=== PATIENT | female | born 1980 | race Caucasian/White ===

== ENCOUNTER → 2016-06-14 | Outpatient (CLI) | payer OTHER ==
[~2016-06-14] MED LIST: ADAL1KIT SC; ATEN-173 PO; CEPH-571 PO; CHOL1000 PO; HYDR2.5O TOP; LEVOIUD IU; NATURAL SUPPLEMENT PO
[2016-06-14 13:24] LABS: BASO % 1.1 %; BASO ABS # 0.08 K/uL (0-0.2); COMPLETE YES; EOS % 9.1 %; IG% 0.1 %; LYMPH ABS # 2.97 K/uL (1.2-3.4); MEAN CELL VOLUME 94.8 fL (80-100); MEAN CORPUSCULAR HEMOGLOBIN 31.9 pg (25-34); MEAN CORPUSCULAR HGB CONC 33.7 g/dl (32-36); MEAN PLATELET VOLUME 9.5 fL (7.4-10.4); MONO % 5.2 %; NEUT % 43.5 %; PLATELET COUNT 355 K/uL (130-400); RED BLOOD COUNT 4.01 M/uL (4.2-5.4); WHITE BLOOD COUNT 7.24 K/uL (4.8-10.8)
[2016-06-14 14:14] LABS: ALKALINE PHOSPHATASE 84 U/L (45-117); ALT/SGPT 21 U/L (12-78); AST/SGOT 16 U/L (15-37); BLOOD UREA NITROGEN 6 mg/dl (7-18); BUN/CREATININE RATIO 9.1 (10-20); CARBON DIOXIDE 29 mmol/L (21-32); CHLORIDE 107 mmol/L (98-107); CREATININE 0.64 mg/dl (0.60-1.20); GLUCOSE 83 mg/dl (70-99); POTASSIUM 3.6 mmol/L (3.5-5.1); SODIUM 141 mmol/L (136-145)
[2016-06-14 14:27] LABS: ALB/GLOB RATIO 0.9 (0.9-2); C-REACTIVE PROTEIN 0.87 mg/dl (0-0.29)
[2016-06-16 16:54] LABS: QUANTIF TB AG-NIL 0.14 IU/ML; QUANTIFERON NIL 0.09 IU/ML
== END | disposition home or self-care (01) ==
LOC: C.LAB1850 12:37
PROVIDERS: ATTEND Registered Nurse
DX: R19.8 Other specified symptoms and signs involving the digestive system and abdomen (principal); E55.9 Vitamin D deficiency, unspecified

== ENCOUNTER → 2016-06-19 | Outpatient (CLI) | payer OTHER ==
[~2016-06-19] MED LIST changes: +GADAVIST IV PRN
--- NOTE | 2016-06-19 07:53 | DIAGNOSTIC IMAGING REPORT ---
MRI pelvis PELVIS COMBO CLINICAL HISTORY: K51.90 Ulcerative [id number] OlytkfrH45.8 Rectal ondgtancP25.8 pain. Fistula. TECHNIQUE: Multi axial MRI acquisition COMPARISON STUDY: None FINDINGS: Findings suggesting a slight degree of wall edema and hyperemia of the mid to distal sigmoid and rectosigmoid regions. There is a trace amount of pericolonic infiltrative change. A well-defined fistulous tract abscess or collection is not appreciated. Bladder is midline. Uterus is retroflexed in configuration. The junctional zone is intact. No significant pelvic or inguinal adenopathy. IMPRESSION: Findings consistent with a mild component of rectosigmoid colitis. 2. Mild pericolonic infiltrative change. 3. No evidence for abscess collection or obstructive change. 4. No evidence for well-defined fistulous tract. Electronically signed by: Ino Pritchett M.D. 06/19/2016 7:52 AM Dictated Date/Time: 06/19/2016 7:46 AM
== END | disposition home or self-care (01) ==
LOC: C.MRI 05:52
PROVIDERS: ATTEND Registered Nurse
DX: K51.90 Ulcerative colitis, unspecified, without complications (principal); K62.5 Hemorrhage of anus and rectum; L98.8 Other specified disorders of the skin and subcutaneous tissue; R19.8 Other specified symptoms and signs involving the digestive system and abdomen

== ENCOUNTER → 2016-07-24 | Day surgery (SDC) | payer OTHER ==
[2016-07-18 13:20] VITALS: BMI 21.0
[~2016-07-24] VITALS: Ht 160 cm; Wt 55.9 kg
[~2016-07-24] MED LIST changes: +ATROPINE SULFATE 0.1 MG/ML 5ML SYR IV PRN; +EpHEDrine SULFATE INJ 50 MG/ML AMP IV PRN; -GADAVIST IV PRN; -LEVOIUD IU; +MIDAZOLAM HCL 1 MG/ML 2ML VIAL ONE; -NATURAL SUPPLEMENT PO; +PROPOFOL IV EMULSION 10 MG/ML 20 ML VIAL IV ONE; +SODIUM CHLORIDE 0.9% 500ML 500 ML IV ONE
[2016-07-24 14:40] VITALS: Ht 160 cm; Wt 55.9 kg
--- NOTE | 2016-07-24 15:05 | Endo History and Physical ---
History & Physical Date of Service: Jul 24, 2016. Chief Complaint: HX ULCERATIVE COLISTIS, FLARE STARTING APRIL BLOOD AND MUCOUS Referring Physician: DR BONILLA History of Present Illness 35 yo CF who presents for colonoscopy secondary to history of ulcerative colitis. Past Surgical History Hx Cardiac Surgery: No Hx Internal Defibrillator: No Hx Pacemaker: No Hx Abdominal Surgery: Yes (C SECTION) Hx of Implantable Prosthesis: No Hx Post-Op Nausea and Vomiting: No Hx Cancer Surgery: No Hx Thoracic Surgery: No Hx Orthopedic: No Hx Urinary Tract Surgery: No Family History IBD Social History Smoking Status: Never Smoker Hx Substance Use: No Hx Alcohol Use: Yes (VERY RARELY) Allergies Coded Allergies: No Known Allergies (Unverified , 07/24/16) Current Medications Reported Home Medications Medications Dose Route/Sig Max Daily Dose Days Date Category Dose Instructions Hydrocortisone (Hydrocortisone (Topical)) 2.5 % Oin 1 Appln TOP PRN 5 07/18/16 Reported Vitamin D3 (Cholecalciferol) 1,000 Unit Tab 5,000 Units PO Q3D 90 07/18/16 Reported Tenormin (Atenolol) 25 Mg Tab 25 Mg PO QAM 07/18/16 Reported Humira (Adalimumab) 40 Mg/0.8 Ml Kit 40 Mg SC Q2WEEK 09/24/13 Reported LAST DOSE-07/12/16 Vital Signs Weight (Kilograms): 55.91 Height (Feet): 5 Height (Inches): 3 Date Time Temp Pulse Resp B/P (MAP) Pulse Ox O2 Delivery O2 Flow Rate FiO2 07/24/16 14:40 36.7 80 20 141/67 (91) 100 Room Air Physical Exam General Appearance: WD/WN, no apparent distress Respiratory/Chest: Auscultation: breath sounds normal Cardiovascular: Heart Auscultation: RRR Abdomen: Bowel Sounds: normal Inspection & Palpation: soft, non-distended, no tenderness, guarding & rebound Assessment and Plan Assessment: 35 yo CF who presents for colonoscopy secondary to history of ulcerative colitis. Plan: Proceed with colonoscopy.
--- NOTE | 2016-07-24 15:45 | Discharge Instructions ---
Endoscopy Patient Instructions Date / Procedure(s) Performed Jul 24, 2016. Colonoscopy Allergy Information Coded Allergies: No Known Allergies (Unverified , 07/24/16) Discharge Date / Findings Jul 24, 2016. Left sided UC s/p biopsies Random colon biopsies Stool aspirate collected Medication Instructions OK to resume all medications today as prescribed Reported Home Medications Medications Dose Route/Sig Max Daily Dose Days Date Category Dose Instructions Hydrocortisone (Hydrocortisone (Topical)) 2.5 % Oin 1 Appln TOP PRN 5 07/18/16 Reported Vitamin D3 (Cholecalciferol) 1,000 Unit Tab 5,000 Units PO Q3D 90 07/18/16 Reported Tenormin (Atenolol) 25 Mg Tab 25 Mg PO QAM 07/18/16 Reported Humira (Adalimumab) 40 Mg/0.8 Ml Kit 40 Mg SC Q2WEEK 09/24/13 Reported LAST DOSE-07/12/16 Provider Instructions Activity Restrictions - No exercising or heavy lifting for 24 hours. - Do not drink alcohol the day of the procedure. - Do not drive a car or operate machinery until the day after the procedure. - Do not make any important decisions or sign important papers in 24 hours after the procedure. Following Day: - Return to full activity which may include returning to work/school. Diet Start your diet with liquids and light foods (jello, soup, juice, toast). Then eat your usual diet if not nauseated. Treatment For Common After Affects For mild abdominal pain, bloating, or excessive gas: - Rest - Eat lightly - Lie on right side Follow-Up Information Follow-up with DR BONILLA as scheduled Anesthesia Information What You Should Know You have had a procedure that required some medicine to reduce anxiety and discomfort. This treatment is called moderate sedation. After receiving the treatment, you may be sleepy, but you will be able to breathe on your own. The effects of the treatment may last for several hours. Follow these instructions along with Activity/Diet recommendations noted above: * Do NOT do anything where dizziness or clumsiness would be dangerous. * Rest quietly at home today, then you can be up and about tomorrow. * Have a responsible person stay with you the rest of today. * You may have had an I.V. today. If so, you may take the dressing off later today. Recommendations Call your doctor if: * Trouble breathing * Continuous vomiting for more than 24 hours * Temperature above 101 degrees * Severe abdominal pain or bloating * Pain not relieved by pain medicine ordered * There is increased drainage or redness from any incision * A large amount of rectal bleeding greater than 2-3 tablespoons. (If you had a polyp/s removed or have hemorrhoids, a small amount of blood - from the rectum is to be expected.) * You have any unanswered questions or concerns. IN THE EVENT OF A SERIOUS EMERGENCY, GO TO THE NEAREST EMERGENCY ROOM Your discharge instructions were prepared by provider Arash Ward. Patient Instructions Signature Page Veronique Dubois Patient (or Guardian) Signature/Date: I have read and understand the instructions given to me by my caregivers. Caregiver/RN/Doctor Signature/Date: The above-named patient and/or guardian has received patient instructions on this date. + Original Patient Signature Page (only) stays with chart. Please make copy for patient.
--- NOTE | 2016-07-24 15:56 | Anesthesiology Progress Note ---
Anesthesia Post Op Note Date & Time Jul 24, 2016 at 15:55 Vital Signs Pain Intensity: 0 Vital Signs Past 12 Hours Date Time Temp Pulse Resp B/P (MAP) Pulse Ox O2 Delivery O2 Flow Rate FiO2 07/24/16 14:40 36.7 80 20 141/67 (91) 100 Room Air Notes Mental Status: alert / awake / arousable, participated in evaluation Pt Amnestic to Procedure: Yes Nausea / Vomiting: adequately controlled Pain: adequately controlled Airway Patency, RR, SpO2: stable & adequate BP & HR: stable & adequate Hydration State: stable & adequate Anesthetic Complications: no major complications apparent
--- NOTE | 2016-07-24 16:01 | GI REPORT ---
Procedure Date: 07/24/2016 3:11 PM Procedure: Colonoscopy Indications: Left-sided chronic ulcerative colitis Medicines: Monitored Anesthesia Care Complications: No immediate complications. Estimated Blood Loss: Estimated blood loss: none. Procedure: Pre-Anesthesia Assessment: - Prior to the procedure, a History and Physical was performed, and patient medications and allergies were reviewed. The patient's tolerance of previous anesthesia was also reviewed. The risks and benefits of the procedure and the sedation options and risks were discussed with the patient. All questions were answered, and informed consent was obtained. Prior Anticoagulants: The patient has taken no previous anticoagulant or antiplatelet agents. ASA Grade Assessment: II - A patient with mild systemic disease. After reviewing the risks and benefits, the patient was deemed in satisfactory condition to undergo the procedure. After I obtained informed consent, the scope was passed under direct vision. Throughout the procedure, the patient's blood pressure, pulse, and oxygen saturations were monitored continuously. The scope was introduced through the anus and advanced to the terminal ileum. The colonoscopy was performed without difficulty. The patient tolerated the procedure well. The quality of the bowel preparation was good. The terminal ileum, ileocecal valve, appendiceal orifice, and rectum were photographed. Findings: Inflammation characterized by confluent ulcerations was found in a continuous and circumferential pattern from the anus to the sigmoid colon. The descending colon, the transverse colon, the ascending colon and the cecum were spared. This was severe in severity. Biopsies were taken with a cold forceps for histology. Fluid aspiration for cytology was performed in the entire colon. Impression: - Inflammation was found from the anus to the sigmoid colon secondary to left-sided ulcerative colitis. Biopsied. - Fluid aspiration was performed. Recommendation: - Resume previous diet. - Continue present medications. - Repeat colonoscopy for surveillance based on pathology results. - Return to primary care physician as previously scheduled. Arash Ward DO 07/24/2016 4:01:28 PM This report has been signed electronically. Note Initiated On: 07/24/2016 3:11 PM I attest to the content of the Intraoperative Record and orders documented therein, exceptions below
[2016-07-24 16:15] VITALS: BP 103/68; PULSE 79; O2SAT 100
== END | disposition home or self-care (01) ==
LOC: C.GI 14:28
PROVIDERS: ATTEND Internal Medicine
DX: K51.90 Ulcerative colitis, unspecified, without complications (principal); I10 Essential (primary) hypertension; Z68.21 Body mass index [BMI] 21.0-21.9, adult

== ENCOUNTER → 2016-11-27 | Outpatient (CLI) | payer OTHER ==
[~2016-11-27] MED LIST changes: -ATROPINE SULFATE 0.1 MG/ML 5ML SYR IV PRN; -CEPH-571 PO; -EpHEDrine SULFATE INJ 50 MG/ML AMP IV PRN; -MIDAZOLAM HCL 1 MG/ML 2ML VIAL ONE; -PROPOFOL IV EMULSION 10 MG/ML 20 ML VIAL IV ONE; -SODIUM CHLORIDE 0.9% 500ML 500 ML IV ONE
== END | disposition home or self-care (01) ==
LOC: C.MAMM 07:55
PROVIDERS: ATTEND Registered Nurse
DX: K51.90 Ulcerative colitis, unspecified, without complications (principal); E55.9 Vitamin D deficiency, unspecified

== ENCOUNTER 2017-01-02 09:27 | Emergency (ER) | payer OTHER ==
[~2017-01-02] VITALS: Ht 160 cm; Wt 53.3 kg
[2017-01-02 09:30] VITALS: TEMP 36.7; Ht 160 cm; Wt 53.3 kg
[2017-01-02] MEDS ORDERED: SODIUM CHLORIDE 0.9% 500ML 500 ML IV STA (10:01)
[2017-01-02 10:16] LABS: BASO % 0.6 %; BASO ABS # 0.06 K/uL (0-0.2); COMPLETE YES; EOS % 1.9 %; HEMATOCRIT 38.7 % (37-47); IG% 0.3 %; LYMPH % 14.8 %; MEAN CELL VOLUME 92.1 fL (80-100); MEAN CORPUSCULAR HEMOGLOBIN 31.2 pg (25-34); MEAN CORPUSCULAR HGB CONC 33.9 g/dl (32-36); MEAN PLATELET VOLUME 9.5 fL (7.4-10.4); MONO % 3.8 %; NEUT % 78.6 %; PLATELET COUNT 286 K/uL (130-400); WHITE BLOOD COUNT 10.14 K/uL (4.8-10.8)
[2017-01-02 10:28] LABS: URINE APPEARANCE CLEAR (CLEAR); URINE BILIRUBIN NEG (NEG); URINE COLOR YELLOW; URINE EPITHELIAL CELL AUTO 20-30 /lpf (0-5); URINE NITRITE NEG (NEG); URINE SPECIFIC GRAVITY 1.009 (1.000-1.030); UROBILINOGEN NEG (NEG); ZZUR CULT IF INDIC CLEAN CATCH YES
[2017-01-02 10:33] LABS: MANUAL MICROSCOPIC REQUIRED? NO; REVIEW REQ? NO
[2017-01-02 10:34] LABS: ALT/SGPT 14 U/L (12-78); BLOOD UREA NITROGEN 7 mg/dl (7-18); BUN/CREATININE RATIO 9.6 (10-20); CALCIUM 9.2 mg/dl (8.5-10.1); CARBON DIOXIDE 25 mmol/L (21-32); CHLORIDE 102 mmol/L (98-107); CREATININE 0.71 mg/dl (0.60-1.20); GLUCOSE 106 mg/dl (70-99); POTASSIUM 3.3 mmol/L (3.5-5.1); SODIUM 136 mmol/L (136-145)
[2017-01-02 10:37] LABS: ALKALINE PHOSPHATASE 94 U/L (45-117); AST/SGOT 10 U/L (15-37)
[2017-01-02] MEDS ORDERED: OPTIRAY 320 IV PRN (11:00)
[2017-01-02 12:28] VITALS: BP 139/80; PULSE 99; O2SAT 100
--- NOTE | 2017-01-02 13:05 | DIAGNOSTIC IMAGING REPORT ---
CT SCAN OF THE ABDOMEN AND PELVIS WITH IV CONTRAST CLINICAL HISTORY: Urethral fistula. COMPARISON STUDY: Pelvic MRI dated 06/19/2016. TECHNIQUE: Following the IV administration of 94 cc of Optiray 320, CT scan of the abdomen and pelvis is performed from the lung bases to the proximal femora. Images are reviewed in the axial, sagittal, and coronal planes. IV contrast was administered without complication. A dose lowering technique was utilized adhering to the principles of ALARA. CT DOSE: 243.48 mGy.cm FINDINGS: Lung bases: The heart is normal in size and without pericardial effusion. The lung bases are clear. Liver: The contrast-enhanced liver is normal in size, contour, and attenuation. Fatty infiltration is seen adjacent to falciform ligament. There is no intrahepatic biliary ductal dilatation. The hepatic veins and portal veins are patent. Gallbladder: Unremarkable. Spleen: Normal in size and attenuation. Pancreas: Unremarkable. Adrenal glands: Unremarkable. Kidneys: The contrast enhanced kidneys are normal in size and without hydronephrosis. The kidneys enhance symmetrically. Abdominal vasculature: The abdominal aorta is normal in course and caliber noting moderate to advanced atherosclerotic calcification significantly advanced for age. Bowel: There is wall thickening involving the rectosigmoid colon with surrounding inflammatory change. The appearance is consistent with a nonspecific proctocolitis. No bowel obstruction is seen. The appendix is well-visualized and normal. The perianal soft tissues are normal in appearance. No perianal abscess or fistula is identified by CT. Peritoneum: There is no intraperitoneal free air or abdominal ascites. There is a fat-containing umbilical hernia. Lymphadenopathy: A prominent left inguinal lymph node measures 1.7 x 1.2 cm. Pelvic viscera: The bladder, uterus, and adnexa are normal as visualized. Bilateral ovarian follicles are observed. Skeletal structures: No lytic or blastic lesions are seen. IMPRESSION: 1. Findings are consistent with a nonspecific proctocolitis. This is likely on an infectious or inflammatory basis. Clinical correlation will be essential. 2. There is no CT evidence of urethral fistula as clinically queried. Note that this is not well evaluated by CT. 3. Prominent left inguinal lymph nodes are identified and likely on the reactive basis. Clinical correlation will be required. 4. The perianal soft tissues are normal as visualized. 5. There is age advanced atherosclerotic calcification of the abdominal aorta and iliac arteries. 6. Additional findings as above. Electronically signed by: Jorge Whitfield M.D. 01/02/2017 1:03 PM Dictated Date/Time: 01/02/2017 12:56 PM
[2017-01-02] MEDS ORDERED: CEPH-571 PO (13:29)
[2017-01-02] MEDS ORDERED: CEPHALEXIN MONOHYDRATE 250 MG CAP PO ONE (13:30)
--- NOTE | 2017-01-02 15:19 | EMERGENCY ROOM VISIT NOTE ---
History Report prepared by Lexi: Carolina Rider Under the Supervision of: Dr. Jameson Norris D.O. 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 She reports feeling the need to have a bowel movement this morning. She felt some abdominal pressure and then a "pop." She was incontinent of stool and noticed some flecks of bright red blood throughout and on her underwear. She then went to have a bowel movement and reports some bright red blood in the toilet bowl. She is not sure if the blood is in her stool or if she is bleeding vaginally or from her urethra. The patient states that she has had multiple episodes of diarrhea this morning and has had "a lot of blood dripping out." She reports bright red blood and denies any melena. She is still experiencing abdominal pain that she describes as a pressure and rates as a 3/10 in severity. 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 Crohn's disease and was diagnosed when she was 16 years old. She was taking Humira for years but reports that she stopped taking it 9-10 weeks ago. She states that she is currently having a flare-up of her UC vs. Crohn's and her current symptoms are typical are her usual flare- ups. The patient does not take any blood thinners. She denies fevers, nausea, vomiting, and dysuria. She follows with Dr. Prater GI. 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 Review of Systems See HPI for pertinent positives & negatives. A total of 10 systems reviewed and were otherwise negative. . Past Medical & Surgical Medical Problems: (1) Anxiety (2) Hypertension (3) Inflammatory bowel disease (4) Ulcerative colitis vs. Crohns disease (5) Urinary tract infection (6) Urinary tract infection Family History No pertinent history stated. Social History Smoking Status: Never Smoker Smokeless Tobacco Use: No Marital Status: single Occupation Status: employed Current/Historical Medications Scheduled Cephalexin (Keflex), 1 CAP PO TID Allergies Coded Allergies: Thimerosal (Unverified Allergy, Unknown, UNKNOWN (FROM ALLERGY TESTING), 01/02/17) Physical Exam Vital Signs Date Time Temp Pulse Resp B/P (MAP) Pulse Ox O2 Delivery O2 Flow Rate FiO2 01/02/17 12:28 99 18 139/80 100 Room Air 01/02/17 10:55 99 18 132/88 100 Room Air 01/02/17 09:30 36.7 103 18 143/91 99 Room Air Physical Exam GENERAL: Sitting up in bed, alert, well appearing, well nourished, no distress, non-toxic EYE EXAM: normal conjunctiva. OROPHARYNX: no exudate, no erythema, lips, buccal mucosa, and tongue normal and mucous membranes are moist NECK: supple, no nuchal rigidity, no adenopathy, non-tender LUNGS: Clear to auscultation. Normal chest wall mechanics HEART: no murmurs, S1 normal and S2 normal ABDOMEN: abdomen soft, non-tender, normo-active bowel sounds, no masses, no rebound or guarding. PELVIC: Normal external genitalia. Normal vaginal mucosa. Faint amount of venous oozing from cervix. Patient is due for menstrual period any day. BACK: Back is symmetrical on inspection and there is no deformity, no midline tenderness, no CVA tenderness. SKIN: no rashes and no bruising UPPER EXTREMITIES: upper extremities are grossly normal. LOWER EXTREMITIES: No pitting edema. NEURO EXAM: Normal sensorium, cranial nerves II-XII grossly intact, normal speech, no gross weakness of arms, no gross weakness of legs. Medical Decision & Procedures ER Provider Diagnostic Interpretation: Radiology results as stated below per my review and the radiologist's interpretation: CT SCAN OF THE ABDOMEN AND PELVIS WITH IV CONTRAST CLINICAL HISTORY: Urethral fistula. COMPARISON STUDY: Pelvic MRI dated 06/19/2016. TECHNIQUE: Following the IV administration of 94 cc of Optiray 320, CT scan of the abdomen and pelvis is performed from the lung bases to the proximal femora. Images are reviewed in the axial, sagittal, and coronal planes. IV contrast was administered without complication. A dose lowering technique was utilized adhering to the principles of ALARA. CT DOSE: 243.48 mGy.cm FINDINGS: Lung bases: The heart is normal in size and without pericardial effusion. The lung bases are clear. Liver: The contrast-enhanced liver is normal in size, contour, and attenuation. Fatty infiltration is seen adjacent to falciform ligament. There is no intrahepatic biliary ductal dilatation. The hepatic veins and portal veins are patent. Gallbladder: Unremarkable. Spleen: Normal in size and attenuation. Pancreas: Unremarkable. Adrenal glands: Unremarkable. Kidneys: The contrast enhanced kidneys are normal in size and without hydronephrosis. The kidneys enhance symmetrically. Abdominal vasculature: The abdominal aorta is normal in course and caliber noting moderate to advanced atherosclerotic calcification significantly advanced for age. Bowel: There is wall thickening involving the rectosigmoid colon with surrounding inflammatory change. The appearance is consistent with a nonspecific proctocolitis. No bowel obstruction is seen. The appendix is well-visualized and normal. The perianal soft tissues are normal in appearance. No perianal abscess or fistula is identified by CT. Peritoneum: There is no intraperitoneal free air or abdominal ascites. There is a fat-containing umbilical hernia. Lymphadenopathy: A prominent left inguinal lymph node measures 1.7 x 1.2 cm. Pelvic viscera: The bladder, uterus, and adnexa are normal as visualized. Bilateral ovarian follicles are observed. Skeletal structures: No lytic or blastic lesions are seen. IMPRESSION: 1. Findings are consistent with a nonspecific proctocolitis. This is likely on an infectious or inflammatory basis. Clinical correlation will be essential. 2. There is no CT evidence of urethral fistula as clinically queried. Note that this is not well evaluated by CT. 3. Prominent left inguinal lymph nodes are identified and likely on the reactive basis. Clinical correlation will be required. 4. The perianal soft tissues are normal as visualized. 5. There is age advanced atherosclerotic calcification of the abdominal aorta and iliac arteries. 6. Additional findings as above. Electronically signed by: Jorge Whitfield M.D. 01/02/2017 1:03 PM Dictated Date/Time: 01/02/2017 12:56 PM Laboratory Results 01/02/17 10:00 Red Blood Count 4.20, Mean Corpuscular Volume 92.1, Mean Corpuscular Hemoglobin 31.2, Mean Corpuscular Hemoglobin Concent 33.9, Mean Platelet Volume 9.5, Neutrophils (%) (Auto) 78.6, Lymphocytes (%) (Auto) 14.8, Monocytes (%) (Auto) 3.8, Eosinophils (%) (Auto) 1.9, Basophils (%) (Auto) 0.6, Neutrophils # (Auto) 7.97, Lymphocytes # (Auto) 1.50, Monocytes # (Auto) 0.39, Eosinophils # (Auto) 0.19, Basophils # (Auto) 0.06 01/02/17 10:00 Test 01/02/17 10:00 01/02/17 10:03 White Blood Count 10.14 K/uL (4.8-10.8) Red Blood Count 4.20 M/uL (4.2-5.4) Hemoglobin 13.1 g/dL (12.0-16.0) Hematocrit 38.7 % (37-47) Mean Corpuscular Volume 92.1 fL (80-100) Mean Corpuscular Hemoglobin 31.2 pg (25-34) Mean Corpuscular Hemoglobin Concent 33.9 g/dl (32-36) Platelet Count 286 K/uL (130-400) Mean Platelet Volume 9.5 fL (7.4-10.4) Neutrophils (%) (Auto) 78.6 % Lymphocytes (%) (Auto) 14.8 % Monocytes (%) (Auto) 3.8 % Eosinophils (%) (Auto) 1.9 % Basophils (%) (Auto) 0.6 % Neutrophils # (Auto) 7.97 K/uL (1.4-6.5) Lymphocytes # (Auto) 1.50 K/uL (1.2-3.4) Monocytes # (Auto) 0.39 K/uL (0.11-0.59) Eosinophils # (Auto) 0.19 K/uL (0-0.5) Basophils # (Auto) 0.06 K/uL (0-0.2) RDW Standard Deviation 43.2 fL (36.4-46.3) RDW Coefficient of Variation 12.8 % (11.5-14.5) Immature Granulocyte % (Auto) 0.3 % Immature Granulocyte # (Auto) 0.03 K/uL (0.00-0.02) Anion Gap 9.0 mmol/L (3-11) Est Creatinine Clear Calc Drug Dose 88.8 ml/min Estimated GFR () 125.2 Estimated GFR (Non- 108.1 BUN/Creatinine Ratio 9.6 (10-20) Calcium Level 9.2 mg/dl (8.5-10.1) Total Bilirubin 0.3 mg/dl (0.2-1) Direct Bilirubin < 0.1 mg/dl (0-0.2) Aspartate Amino Transf (AST/SGOT) 10 U/L (15-37) Alanine Aminotransferase (ALT/SGPT) 14 U/L (12-78) Alkaline Phosphatase 94 U/L (45-117) Total Protein 8.5 gm/dl (6.4-8.2) Albumin 3.4 gm/dl (3.4-5.0) Lipase 94 U/L (73-393) Urine Color YELLOW Urine Appearance CLEAR (CLEAR) Urine pH 6.0 (4.5-7.5) Urine Specific [place] 1.009 (1.000-1.030) Urine Protein NEG (NEG) Urine Glucose (UA) NEG (NEG) Urine Ketones 1+ (NEG) Urine Occult Blood 2+ (NEG) Urine Nitrite NEG (NEG) Urine Bilirubin NEG (NEG) Urine Urobilinogen NEG (NEG) Urine Leukocyte Esterase MODERATE (NEG) Urine WBC (Auto) 10-30 /hpf (0-5) Urine RBC (Auto) 5-10 /hpf (0-4) Urine Hyaline Casts (Auto) 0 /lpf (0-5) Urine Epithelial Cells (Auto) 20-30 /lpf (0-5) Urine Bacteria (Auto) NEG (NEG) Urine Test NEG (NEG) Laboratory results per my review. Medications Administered Medications (Trade) Dose Ordered Sig/Oscar Route Start Time Stop Time Status Last Admin Dose Admin Sodium Chloride 500 ml @ 999 mls/hr Q31M STAT IV 01/02/17 10:01 01/02/17 10:31 DC 01/02/17 10:29 999 MLS/HR Cephalexin Monohydrate (Keflex Cap) 500 mg NOW ONCE PO 01/02/17 13:30 01/02/17 13:31 DC 01/02/17 13:56 500 MG ED Course ED COURSE: Vital signs were reviewed and showed tachycardic. The patients medical record was reviewed The above diagnostic studies were performed and reviewed. ED treatments and interventions as stated above. 0944: The patient was evaluated in room B6. A complete history and physical examination was performed. 1001: Ordered NSS 500 ml @ 999 mls/hr IV 1004: I performed a rectal exam. The patient has an external hemorrhoid and is faint heme positive. 1214 I reassessed the patient at this time. She is feeling better and resting comfortably. 1302: The patient is doing well at this time. 1320: I reassessed the patient and updated her on the results. 1321: I spoke with Dr. Tinsley regarding the patient's case. He recommends no additional medications at this time and will follow-up with the patient in the office. 1326: Upon reevaluation the patient is resting comfortably. I discussed my findings with the patient and she understands and agrees with the treatment plan. Based on the patients age, coexisting illnesses, exam and lab findings the decision to treat as an outpatient was made. The patient remained stable while under my care. The patient appeared well at the time of discharge. 1330: Ordered Keflex 500 mg PO Medical Decision Differential diagnoses includes but is not limited to gastritis, peptic ulcer disease, GERD, gallbladder disease, pancreatitis, small bowel obstruction, acute coronary syndrome, pericarditis, ischemic bowel, irritable bowel disease, irritable bowel syndrome, appendicitis, diverticulitis, malignancy, hernia, urinary tract infection, torsion, [/ectopic (if female)], perforation, trauma, infectious. Patient is a 36-year-old female who presents to ER for diffuse lower abdominal pain associated with blood in her stool. History of Crohn's/ulcerative colitis and follows with GI. Has not been on any medication for the past 10 weeks secondary to side effects. Concerned that she may possibly have a fistula as she noticed stool products near her urethra/vagina. CT abdomen and pelvis was unchanged. CBC along with BMP, LFTs, bilirubin lipase is unremarkable. was negative. UA shows UTI. Discussed with GI. They do not want to start any additional medications will see her in the office this week. 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 She was discharged follow- up as an outpatient. Discussed with Pt concerning signs and symptoms to watch out for. Pt was instructed to follow up with their PCP and discussed with the patient their option to return to the ED at anytime for persistent or worsening symptoms. The appropriate anticipatory guidance and out-patient management, including indications for return to the emergency department, were explained at length to the patient and understood. Medication Reconcilliation Current Medication List: was personally reviewed by me Blood Pressure Screening Patient's blood pressure: Normal blood pressure Consults Time Called: 1318 Consulting Physician: Dr. Mendez Returned Call: [address] Mendez of GI regarding the patient's case. He recommends no additional medications at this time and will follow-up with the patient in the office. Impression Primary Impression: Inflammatory bowel disease Additional Impression: UTI (urinary tract infection) Scribe Attestation The scribe's documentation has been prepared under my direction and personally reviewed by me in its entirety. I confirm that the note above accurately reflects all work, treatment, procedures, and medical decision making performed by me. Departure Information Dispostion Home / Self-Care Prescriptions Cephalexin (KEFLEX) 500 Mg Cap 1 CAP PO TID for 7 Days, #21 CAP Prov: Jameson Norris, DO 01/02/17 Referrals Markie Clemens M.D. (PCP) Arash Mendez D.O. Forms HOME CARE DOCUMENTATION FORM, IMPORTANT VISIT INFORMATION, WORK / SCHOOL INSTRUCTIONS Patient Instructions ED Inflam Bowel Disease Crohn, ED UTI Cystitis Female, My [facility] Additional Instructions Please follow up with your primary care doctor with in the next 24 hours. Any worsening of your symptoms, please return to the ED immediately. This includes any fevers greater than 100.4, worsening pain, chest pain, shortness breath, persistent nausea, vomiting, unable to eat or drink, increased blood in your stool, passing out, or any other concerning signs or symptoms from your standpoint. Please call Dr. mendez when you leave here to set up an appointment. Please take your antibiotics as prescribed. Problem Qualifiers Additional Impression: UTI (urinary tract infection) Urinary tract infection type: site unspecified Hematuria presence: with hematuria Qualified Codes: N39.0 - Urinary tract infection, site not specified ; R31.9 - Hematuria, unspecified
== END 2017-01-02 14:03 | disposition home or self-care (01) ==
LOC: C.EDB 09:28
DX: K63.9 Disease of intestine, unspecified (principal); N39.0 Urinary tract infection, site not specified; R31.9 Hematuria, unspecified; Z98.890 Other specified postprocedural states; I10 Essential (primary) hypertension; Z87.440 Personal history of urinary (tract) infections

== ENCOUNTER → 2017-01-11 | Outpatient (CLI) | payer OTHER ==
[~2017-01-11] MED LIST changes: -ADAL1KIT SC; -ATEN-173 PO; -CHOL1000 PO; +GADAVIST IV PRN; -HYDR2.5O TOP
--- NOTE | 2017-01-12 15:57 | DIAGNOSTIC IMAGING REPORT ---
MRI OF THE PELVIS WITH AND WITHOUT CONTRAST CLINICAL HISTORY: History of fistulas. Hematuria. COMPARISON STUDY: MRI of the pelvis June 19, [address] of the abdomen and pelvis January 02, 2017. TECHNIQUE: Utilizing a 1.5 Annamarie magnet and dedicated coil, multiplanar, multiecho imaging of the pelvis was performed pre and postcontrast administration. Injection of 5.5 cc of Gadavist IV was uneventful. FINDINGS: Note is made of mild wall thickening of the sigmoid colon and rectum which is similar to CT of January 02, 2017. No perirectal abscess or fistula is identified. There is mild pericolonic infiltration which is unchanged. There are prominent perirectal lymph nodes which are unchanged. No periurethral fistula is identified by MRI. There is no pelvic abscess. The ovaries are not enlarged. No suspicious marrow replacement is present. Prominent bilateral inguinal lymph nodes are unchanged since prior CT. IMPRESSION: 1. No perirectal or periurethral fistula identified. No pelvic abscess identified. 2. Mild wall thickening of the sigmoid colon and rectum which suggests a nonspecific proctocolitis which is similar to CT of January 02, 2017. Electronically signed by: Devin Armando M.D. 01/12/2017 3:56 PM Dictated Date/Time: 01/11/2017 7:42 PM
== END | disposition home or self-care (01) ==
LOC: C.MRI 18:00
PROVIDERS: ATTEND Registered Nurse
DX: R31.0 Gross hematuria (principal); L98.8 Other specified disorders of the skin and subcutaneous tissue; K63.9 Disease of intestine, unspecified

== ENCOUNTER → 2017-03-02 | Outpatient (CLI) | payer OTHER ==
[2017-03-02 17:14] LABS: BASO % 0.4 %; BASO ABS # 0.04 K/uL (0-0.2); EOS % 3.3 %; EOS ABS # 0.31 K/uL (0-0.5); HEMATOCRIT 35.2 % (37-47); HEMOGLOBIN 12.2 g/dL (12.0-16.0); IG# 0.02 K/uL (0.00-0.02); LYMPH % 28.5 %; MEAN CORPUSCULAR HEMOGLOBIN 31.5 pg (25-34); MEAN CORPUSCULAR HGB CONC 34.7 g/dl (32-36); MEAN PLATELET VOLUME 9.7 fL (7.4-10.4); MONO % 4.1 %; MONO ABS # 0.39 K/uL (0.11-0.59); NEUT % 63.5 %; NEUT ABS # 6.03 K/uL (1.4-6.5); PLATELET COUNT 286 K/uL (130-400); RED CELL DISTRIBUTION WIDTH CV 12.8 % (11.5-14.5); RED CELL DISTRIBUTION WIDTH SD 42.8 fL (36.4-46.3); WHITE BLOOD COUNT 9.49 K/uL (4.8-10.8)
[2017-03-02 17:23] LABS: ALBUMIN 3.4 gm/dl (3.4-5.0); ALT/SGPT 14 U/L (12-78); AST/SGOT 8 U/L (15-37); BLOOD UREA NITROGEN 11 mg/dl (7-18); CARBON DIOXIDE 28 mmol/L (21-32); CREATININE 0.77 mg/dl (0.60-1.20); GLUCOSE 95 mg/dl (70-99); POTASSIUM 3.6 mmol/L (3.5-5.1); SODIUM 136 mmol/L (136-145)
[2017-03-02 17:26] LABS: ALKALINE PHOSPHATASE 86 U/L (45-117)
== END | disposition home or self-care (01) ==
LOC: C.LAB1850 16:21
PROVIDERS: ATTEND Registered Nurse
DX: E55.9 Vitamin D deficiency, unspecified (principal)

== ENCOUNTER → 2017-03-30 | Outpatient (CLI) | payer OTHER | END | disposition home or self-care (01) | LOC: C.LABSPEC 13:26 | PROVIDERS: ATTEND Physician Assistant | DX: K59.00 Constipation, unspecified (principal); R39.9 Unspecified symptoms and signs involving the genitourinary system ==

== ENCOUNTER → 2017-03-30 | Outpatient (CLI) | payer OTHER | END | disposition home or self-care (01) | LOC: C.PAPS 14:39 | PROVIDERS: ATTEND Physician Assistant | DX: Z12.4 Encounter for screening for malignant neoplasm of cervix (principal) ==

== ENCOUNTER → 2017-04-19 | Outpatient (CLI) | payer OTHER ==
--- NOTE | 2017-04-19 15:17 | MAMMOGRAPHY REPORT ---
BILATERAL DIGITAL DIAGNOSTIC MAMMOGRAM TOMOSYNTHESIS WITH CAD AND TARGETED LEFT ULTRASOUND: 04/19/2017 CLINICAL HISTORY: The patient reports a palpable lump in the left breast for approximately 6 months t o 1 year, which has not noticeably changed in that time. She also reports episodes of diffuse bilater al breast fullness/engorgement and soreness which has recently improved. TECHNIQUE: Breast tomosynthesis in addition to standard 2D mammography was performed. Current study was also evaluated with a Computer Aided Detection (CAD) system. Bilateral CC and MLO 2D and tomosyn thesis images were obtained. COMPARISON: No prior exams were available for comparison. BREAST COMPOSITION: The tissue of both breasts is heterogeneously dense, which may obscure small mas ses. FINDINGS: A triangle marker worley the site of the palpable lump pointed out by the patient in the lef t superior breast at approximately 12-1230. There are no suspicious masses or other suspicious mammo graphic abnormalities noted in this region. The remainder of both breasts are negative, with no susp icious masses, calcifications, or areas of architectural distortion noted. A few scattered bilateral benign-appearing calcifications are noted. Targeted ultrasound was performed of the area of the palpable lump pointed out by the patient, in the left breast at approximately 12:00, 3 cm from the nipple. Sonographically normal tissue is seen in this region, without evidence of a mass or other suspicious sonographic abnormality. IMPRESSION: ACR BI-RADS CATEGORY 2: BENIGN, TARGETED ULTRASOUND ACR BI-RADS CATEGORY 2: BENIGN No suspicious mammographic or sonographic abnormality at the site of the palpable lump pointed out by the patient in the left 12:00 breast. There is no mammographic or targeted sonographic evidence of malignancy. Recommend clinical follow-up for the palpable left breast lump and diffuse bilateral cordelia ast engorgement/soreness, and recommend routine bilateral screening mammograms starting at the age of 40 unless otherwise clinically indicated. The patient has been verbally notified of the results. Approximately 10% of breast cancers are not detected with mammography. A negative mammographic report should not delay biopsy if a clinically suggestive mass is present. Darling Sabillon M.D. /:04/19/2017 09:00:39 Curing Supervisor: Naomy Trujillo, [facility] letter sent: Normal 1/2 BI-RADS Code: ACR BI-RADS Category 2: Benign Ultrasound BI-RADS: ACR BI-RADS Category 2: Benign
== END | disposition home or self-care (01) ==
LOC: C.MAMM 08:32
PROVIDERS: ATTEND Physician Assistant
DX: N63.20 Unspecified lump in the left breast, unspecified quadrant (principal)